=== PATIENT | male | born 1945 | race African-American/Black ===

== ENCOUNTER 2019-09-18 17:38 | Inpatient (IN) ==
[2019-09-18] MEDS ORDERED: NS 1,000 ML ONE (17:42)
[2019-09-18 18:22] LABS: BASO# 0.05 X1000 (0.0-0.2); BASO% 0.6 % (0.0-0.8); EOS# 0.41 X1000 (0.0-0.7); EOS% 4.9 % (0.0-10.0); HEMATOCRIT 33.6 % (42.0-52.0); HEMOGLOBIN 11.2 g/dL (14.0-18.0); IMM GRAN# 0.01 X1000 (0.0-0.04); IMM GRAN% 0.1 % (0.0-0.5); LYMPH# 3.12 X1000 (1.2-3.4); LYMPH% 37.1 % (20.5-51.1); MCH 32.3 PG (27-31); MCHC 33.3 g/dL (33-37); MCV 96.8 FL (81-99); MONO# 0.86 X1000 (0.11-0.59); MONO% 10.2 % (1.7-9.3); MPV 9.6 FL (7.4-10.4); NEUT# 3.95 X1000 (1.4-6.5); NEUT% 47.1 % (42.2-75.2); PLT 258 X1000 (130-400); RBC 3.47 XMIL (4.7-6.1); RDW 14.5 % (11.5-14.5)
[2019-09-18 18:31] LABS: ALBUMIN 4.7 g/dL (3.5-5.0); CREATININE 2.1 mg/dL (0.7-1.2); POTASSIUM 3.9 mmol/L (3.5-5.1); TOTAL BILIRUBIN 0.3 mg/dL (0.20-1.00)
--- NOTE | 2019-09-18 18:44 | EKG Report ---
Test Performed on : 09/18/2019 6:05:08 PM Test Reason : SYNCOPE Blood Pressure : / mmHG Vent. Rate : 059 BPM Atrial Rate : 059 BPM P-R Int : 248 ms QRS Dur : 094 ms QT Int : 430 ms P-R-T Axes : 000 049 053 degrees QTc Int : 425 ms Sinus bradycardia. with 1st degree AV block. Nonspecific T wave abnormality Abnormal ECG When compared with ECG of 18-SEP-2019 17:19, (Unconfirmed) premature atrial complexes. are no longer present DC interval has increased Nonspecific T wave abnormality now evident in Anterior leads Unconfirmed Result
[2019-09-18] MEDS ORDERED: NS 1,000 ML IV ONE ×3 (19:08→20:28)
--- NOTE | 2019-09-18 20:28 | PROVIDER DOCUMENTATION ---
This chart was entered by Rosey Magdaleno Scribe, acting as scribe for Trish Luke MD. HPI-Syncope/Dizziness - General Chief Complaint: Syncope Stated Complaint: syncope Time Seen by Provider: 09/18/19 19:08 Source: patient Allergies/Adverse Reactions: Patient Allergies Allergy/AdvReac Type Severity Reaction Status Date / Time Sulfa (Sulfonamide Allergy SWELLING Verified 09/18/19 17:57 Antibiotics) Home Medications: Home Medication List Medication Instructions Recorded Confirmed Last Taken Type Unobtainable [Home Meds 09/18/19 09/18/19 Unknown History Unobtainable] - History of Present Illness-Syncope/Dizzy Nature of Presenting Problem: 74 y/o male presents to the ED via EMS after syncopal episode. The patient states he [place] standing in line at the post office when he had some pain in his shoulders and neck and he thinks he himself to sit down due to being sitting when he regained consciousness. He states he had a similar episode last week when he felt hot but did not pass out and also had a similar episode previously when he was admitted to [facility] and told to have low iron at that time. He denies recent medication changes and also denies chest pain and dizziness. He does give a history of pulmonary fibrosis. Onset/Duration: reports: just prior to arrival Timing: reports: resolved prior to arrival Context: reports: lost consciousness Loss of Consciousness: unsure Recently Seen Here or By Another Healthcare Provider: No Review of Systems - Adult - REVIEW OF SYSTEMS - ADULT Constitutional: denies: chills, fever, weight gain Eyes: reports: no symptoms reported Ears, Nose, Mouth & Throat: reports: no symptoms reported Cardiovascular: reports: syncope. denies: chest pain, palpitations Respiratory: reports: no symptoms reported Gastrointestinal: reports: no symptoms reported Genitourinary: reports: no symptoms reported Musculoskeletal: reports: no symptoms reported Integumentary: reports: no symptoms reported Neurological: reports: syncope. denies: dizziness/vertigo, headache/migraines Psychiatric: reports: no symptoms reported Endocrine: reports: no symptoms reported Hematologic/Lymphatic: reports: no symptoms reported Allergic/Immunologic: reports: no symptoms reported All Other Systems: Reviewed and Negative Past History - Adult - PAST MEDICAL HISTORY-ADULT Review of Records: reports: Old Records Reviewed, Nursing Assessment Review, Medications Reviewed Physical Exam-General - PHYSICAL EXAM-ADULT Initial Vital Signs Reviewed: Yes - CONSTITUTIONAL General Appearance: alert, no apparent distress - HEAD, EARS, NOSE, MOUTH & THROAT HENMT: normocephalic/atraumatic, moist mucous membranes - NECK Neck: full range of motion, supple - RESPIRATORY Respiratory: normal breath sounds, crackles (left lower base with history of pulmonary fibrosis) - CARDIOVASCULAR Cardiovascular: regular rate, rhythm, no gallop, no murmur - SKIN Integumentary: normal color, warm/dry. negative: diaphoresis - NEUROLOGIC Neurologic: grossly normal - PSYCHIATRIC Psych/Mental Status: normal mood/affect, normal thought content, normal thought process, oriented x 3 Progress - PLAN OF CARE/RESULTS Progress/Plan/Lab Results: Vital Signs - 8 hr 09/18/19 17:40 09/18/19 18:10 09/18/19 20:21 Temperature 98.6 F Pulse Rate 62 60 Pulse Rate [Sitting] 65 Pulse Rate [Standing] 89 Pulse Rate [Supine] 63 Respiratory Rate 22 18 Blood Pressure 97/52 116/65 Blood Pressure [Sitting] 108/63 Blood Pressure [Standing] 113/57 Blood Pressure [Supine] 134/62 O2 Sat by Pulse Oximetry 97 99 09/18/19 21:00 09/18/19 22:00 Temperature Pulse Rate 59 L 60 Pulse Rate [Sitting] Pulse Rate [Standing] Pulse Rate [Supine] Respiratory Rate 16 16 Blood Pressure 112/68 139/70 Blood Pressure [Sitting] Blood Pressure [Standing] Blood Pressure [Supine] O2 Sat by Pulse Oximetry 99 96 Laboratory Results - last 24 hr 09/18/19 09/18/19 09/18/19 17:50 17:50 17:50 WBC 8.40 RBC 3.47 L Hgb 11.2 L Hct 33.6 L MCV 96.8 MCH 32.3 H MCHC 33.3 RDW Std Deviation 14.5 Plt Count 258 MPV 9.6 Immature Gran % (Auto) 0.1 Neut % (Auto) 47.1 Lymph % (Auto) 37.1 [place] % (Auto) 10.2 H Eos % (Auto) 4.9 Baso % (Auto) 0.6 Immature Gran # (Auto) 0.01 Neut # (Auto) 3.95 Lymph # (Auto) 3.12 [place] # (Auto) 0.86 H Eos # (Auto) 0.41 Baso # (Auto) 0.05 Sodium 143 Potassium 3.9 Chloride 105 Carbon Dioxide 24 L Anion Gap 15 BUN 11 Creatinine 2.1 H Estimated GFR/1.73 m2 31 BUN/Creatinine Ratio 5 Glucose 96 Calculated Osmolality 284 Calcium 9.0 Total Bilirubin 0.30 AST 30 ALT 12 Alkaline Phosphatase 65 Troponin T High Sens Total Protein 8.0 Albumin 4.7 Globulin 3.0 Albumin/Globulin Ratio 1.0 Plasma Lactate 1.3 09/18/19 09/18/19 21:58 21:58 WBC RBC Hgb Hct MCV MCH MCHC RDW Std Deviation Plt Count MPV Immature Gran % (Auto) Neut % (Auto) Lymph % (Auto) [place] % (Auto) Eos % (Auto) Baso % (Auto) Immature Gran # (Auto) Neut # (Auto) Lymph # (Auto) [place] # (Auto) Eos # (Auto) Baso # (Auto) Sodium Potassium Chloride Carbon Dioxide Anion Gap BUN Creatinine Estimated GFR/1.73 m2 BUN/Creatinine Ratio Glucose Calculated Osmolality Calcium Total Bilirubin AST ALT Alkaline Phosphatase Troponin T High Sens 16 Total Protein Albumin Globulin Albumin/Globulin Ratio Plasma Lactate 1.6 Orders Category Date Time Status Admit - [facility] Routine AdmDCTranf 09/18/19 23:55 Active ED: Orthostatic Vital Signs (ER use this as directed Care 09/18/19 20:01 Active Neurological Check Q4H Care 09/18/19 23:55 Active Vital Signs Order ORDERED Care 09/18/19 23:55 Active Z-Document. for Tele Applied ORDERED Care 09/18/19 23:55 Active Heart Healthy Diet Diet 09/18/19 23:[address] HEAD W/O CONTRAST [CT] Stat Exams 09/18/19 19:59 Completed BASIC METABOLIC PANEL [CHEM] Stat Lab 09/19/19 06:00 Ordered CBC WITH ELECTRONIC DIFF [HEME] Stat Lab 09/18/19 17:50 Completed CBC WITH ELECTRONIC DIFF [HEME] Stat Lab 09/19/19 06:00 Uncollected COMPREHENSIVE METABOLIC PANEL [CHEM] Stat Lab 09/18/19 17:50 Completed LACTATE, PLASMA [CHEM] Lab 09/18/19 21:58 Completed LACTATE, PLASMA [CHEM] Lab 09/19/19 00:51 Received LACTATE, PLASMA [CHEM] Q3H Lab 09/18/19 17:50 Completed TROPONIN T HIGH SENSITIVITY Stat Lab 09/18/19 21:58 Completed 0.9% Sodium Chloride Inj [Ns] 1,000 ml Med 09/18/19 17:42 Discontinued .ROUTE As directed 0.9% Sodium Chloride Inj [Ns] 1,000 ml Med 09/18/19 20:28 Discontinued IV 125 mls/hr 0.9% Sodium Chloride Inj [Ns] 1,000 ml Med 09/18/19 19:08 Discontinued IV 999 mls/hr 0.9% Sodium Chloride Inj [Ns] 1,000 ml Med 09/18/19 19:59 Discontinued IV 999 mls/hr Telemetry [OM.EQ] Routine Oth 09/18/19 23:55 Active Carotid Ultrasound Stat Ther 09/19/19 06:00 Ordered EKG [EKG] Stat Ther 09/18/19 18:07 Draft EKG [EKG] Stat Ther 09/18/19 21:52 Ordered Echo Spec/Color Doppler Stat Ther 09/19/19 06:00 Ordered Transfer/Admit Order [TRANSFER] Routine Transfer 09/18/19 22:[address] Head negative for anything acute, just showing chronic changes. Cr elevated to 2.1 which is greater than he was in 03/2019 at 1.2. HR also increased on standing during orthostatics. Likely dehydration but given age and symptoms will admit. Spoke to Dr Degroot, international relations teacher for hosp who accepted patient for admission. Stable for floor. Orders placed per his recommendations. Result Diagrams: 09/18/19 17:50 09/18/19 17:50 - EKG 1 Time of EKG reading by physician:: 19:08 EKG Read and Signed by:: Trish Luke EKG Interpretation (*Must complete 3 of following elements*): Abnormal Rate: 59 Rhythm: NSR QRS: normal NC Interval: normal ST Wave: non-specific ST changes - CT/MRI 1 CT Study: Head (EXAM: CT HEAD W/O CONTRAST INDICATION: syncope TECHNIQUE: This exam was performed using automated exposure control, adjustment of mA or kV according to patient size, and/or use of iterative reconstruction technique. COMPARISON: None. FINDINGS: There is minimal patchy low attenuation in the periventricular white matter suggesting mild microangiopathy. There are also are likely a couple of tiny chronic lacunar infarcts involving the periventricular white matter bilaterally. There is no definite acute infarct given the limited sensitivity of CT versus MRI. There is no discrete intracranial mass, mass effect, or intracranial hemorrhage. The surrounding soft tissues and bony structures are essentially unremarkable. IMPRESSION: Mild chronic appearing changes as described. No definite acute intracranial pathology by CT. Electronically signed by Thomas Messina 09/18/2019 9:39 PM) Impression: See EMR Report - CONSULTS/PCP/HOSPITALIST Notification #1 *Consult/PCP/Hospitalist*: Hospitalist, Dr. Degroot Time Discussed: 22:00 Reason/Comments: syncope, creatinine elevated, Consult Disposition: Admit Departure - Departure Date of Disposition Decision: 09/18/19 Time of Disposition Decision: 22:07 DIAGNOSIS: Syncope, PRICE (acute kidney injury), Orthostatic hypotension Disposition: ADMITTED INPATIENT 09 Certified Medical Emergency: Urgent Condition: Stable - Critical Care Note This patient required my direct & personal management of CC.: No Attestation - Physician/ LEONOR Attestation Patient care was provided by Advanced Practice Provider:: No The physician spent face to face time with patient:: Yes Advanced Practice Provider documentation review:: Supervising physician onsite and consulted in the evaluation and care of this patient. The physician did have a face to face encounter with the patient. This chart was documented by the indicated scribe, (Rosey Magdaleno, [place]) and accurately reflects the services I performed and decisions made by me, Trish Luke MD, as attested by the provider's signature.
--- NOTE | 2019-09-18 21:41 | Diag Imaging Result Doc PS360 ---
EXAM: CT HEAD W/O CONTRAST INDICATION: syncope TECHNIQUE: This exam was performed using automated exposure control, adjustment of mA or kV according to patient size, and/or use of iterative reconstruction technique. COMPARISON: None. FINDINGS: There is minimal patchy low attenuation in the periventricular white matter suggesting mild microangiopathy. There are also are likely a couple of tiny chronic lacunar infarcts involving the periventricular white matter bilaterally. There is no definite acute infarct given the limited sensitivity of CT versus MRI. There is no discrete intracranial mass, mass effect, or intracranial hemorrhage. The surrounding soft tissues and bony structures are essentially unremarkable. IMPRESSION: Mild chronic appearing changes as described. No definite acute intracranial pathology by CT. Electronically signed by Thomas Messina 09/18/2019 9:39 PM
[2019-09-19] MEDS ORDERED: PNEUMOVAX 23 IM ONE (01:35)
--- NOTE | 2019-09-19 03:55 | EKG Report ---
Test Performed on : 09/19/2019 03:39:14 AM Test Reason : syncope Blood Pressure : / mmHG Vent. Rate : 059 BPM Atrial Rate : 059 BPM P-R Int : 264 ms QRS Dur : 094 ms QT Int : 426 ms P-R-T Axes : 028 020 027 degrees QTc Int : 421 ms Sinus bradycardia. with 1st degree AV block. Otherwise normal ECG When compared with ECG of 18-SEP-2019 18:05, (Unconfirmed) No significant change was found Unconfirmed Result
[2019-09-19 06:05] LABS: CALCIUM 8.1 mg/dL (8.8-10.2); CREATININE 1.5 mg/dL (0.7-1.2); POTASSIUM 3.6 mmol/L (3.5-5.1)
[2019-09-19 06:08] LABS: BASO# 0.04 X1000 (0.0-0.2); BASO% 0.6 % (0.0-0.8); EOS# 0.33 X1000 (0.0-0.7); EOS% 4.8 % (0.0-10.0); HEMATOCRIT 28.9 % (42.0-52.0); HEMOGLOBIN 9.4 g/dL (14.0-18.0); IMM GRAN# 0.01 X1000 (0.0-0.04); IMM GRAN% 0.1 % (0.0-0.5); LYMPH# 2.59 X1000 (1.2-3.4); LYMPH% 37.4 % (20.5-51.1); MCH 31.9 PG (27-31); MCHC 32.5 g/dL (33-37); MONO# 0.64 X1000 (0.11-0.59); MONO% 9.2 % (1.7-9.3); MPV 9.2 FL (7.4-10.4); NEUT# 3.31 X1000 (1.4-6.5); NEUT% 47.9 % (42.2-75.2); PLT 206 X1000 (130-400); RBC 2.95 XMIL (4.7-6.1); RDW 14.5 % (11.5-14.5); WBC 6.92 X1000 (4.8-10.8)
[2019-09-19] MEDS ORDERED: NS 1,000 ML IV SCH (10:15)
--- NOTE | 2019-09-19 10:43 | EKG Report ---
Test Performed on : 09/19/2019 08:35:20 AM Test Reason : syncope Blood Pressure : / mmHG Vent. Rate : 059 BPM Atrial Rate : 059 BPM P-R Int : 276 ms QRS Dur : 094 ms QT Int : 426 ms P-R-T Axes : 026 017 015 degrees QTc Int : 421 ms Sinus bradycardia. with 1st degree AV block. Otherwise normal ECG When compared with ECG of 19-SEP-2019 03:39, (Unconfirmed) No significant change was found Unconfirmed Result
--- NOTE | 2019-09-19 12:46 | Vascular Study Report ---
EXAM: Carotid Ultrasound INDICATION: syncope TECHNIQUE: COMPARISON: None. FINDINGS: Right: There is mild intimal thickening at the distal CCA and carotid bulb and mild soft plaque at the carotid bulb. The peak systolic velocity measures 117, 81, 109, 92, 81, 74, and 76 cm/s at the right subclavian artery, CCA, bifurcation, proximal ICA, mid ICA, distal ICA, and ECA, respectively. There is antegrade flow in the vertebral artery. The carotid ratio is 1.1. The estimated stenosis is under 39%. Left: There is mild intimal thickening and soft plaque at the distal CCA and carotid bulb. The peak systolic velocity measures 89, 88, 96, 92, 96, 94, and 67 cm/s at the left subclavian artery, CCA, bifurcation, proximal ICA, mid ICA, distal ICA, and ECA, respectively. There is antegrade flow in the vertebral artery. The carotid ratio is 1.0. The estimated stenosis is under 39%. IMPRESSION: Mild atherosclerotic disease as described. No evidence of hemodynamically significant stenosis. Electronically signed by Thomas Messina 09/19/2019 12:44 PM
--- NOTE | 2019-09-19 13:38 | HISTORY AND PHYSICAL ---
CHIEF COMPLAINT: Syncope. HISTORY OF PRESENT ILLNESS: Patient is a very pleasant 74-year-old male who presented to the hospital [place] States he was standing in line, felt some shoulder pain and then sat down. Denies any injury. Notes he has had a similar episode in the past and was told that his iron level was low. He does not remember if there was any further workup at that point. Denies any current chest pains, palpitations. Denies any fevers or chills. ALLERGIES: Sulfa. MEDICATIONS: Do not have an accurate medication list currently. REVIEW OF SYSTEMS: Patient denies any chest pain, palpitations. Denies fevers, chills. Denies headaches, blurred vision. Denies frequent falling. Denies any cough, congestion, shortness of breath, dysuria, urinary frequency, or urgency. FAMILY HISTORY: Noncontributory. PAST MEDICAL HISTORY: The patient denies any chronic active medical problems. SOCIAL HISTORY: Patient lives at home. Denies smoking or illicit substances. PHYSICAL EXAMINATION: VITAL SIGNS: Temperature 98 degrees, pulse 62, blood pressure was 97/52, currently 130s/60s. GENERAL: Patient is awake, alert, pleasant. He is in no respiratory distress. He is lying in the bed. HEENT: Normocephalic. NECK: Supple. CARDIOVASCULAR: Regular rate. CHEST: Clear. Nonlabored. No crackles. No wheezing. ABDOMEN: Soft, nondistended. EXTREMITIES: Moves all extremities. ASSESSMENT: 1. Acute renal failure. Creatinine 2.1. 2. Syncope. 3. Hypotension due to hypovolemia. PLAN: We are going to admit the patient to the hospital, place him on telemetry, check echo, carotid, follow his kidney function and will follow. cc: Patrick Wong MD
[2019-09-20 05:32] LABS: HEMATOCRIT 27.7 % (42.0-52.0); HEMOGLOBIN 9.2 g/dL (14.0-18.0); MCH 32.3 PG (27-31); MCHC 33.2 g/dL (33-37); MCV 97.2 FL (81-99); MPV 9.2 FL (7.4-10.4); RBC 2.85 XMIL (4.7-6.1); RDW 13.9 % (11.5-14.5); WBC 6.88 X1000 (4.8-10.8)
[2019-09-20 05:58] LABS: AGAP 12; ALBUMIN 3.5 g/dL (3.5-5.0); ALKALINE PHOSPHATASE 49 U/L (32-122); BUN 9 mg/dL (8-22); CALCIUM 8.3 mg/dL (8.8-10.2); CHLORIDE 106 mmol/L (98-107); COSMO 279; CREATININE 1.1 mg/dL (0.7-1.2); ESTIMATED GFR > 60; GLUCOSE 89 mg/dL (70-104); GOT 21 U/L (10-34); GPT 9 U/L (10-44); MAGNESIUM 1.6 mg/dL (1.5-2.7); POTASSIUM 3.7 mmol/L (3.5-5.1); SODIUM 141 mmol/L (136-145); TCO2 23 mmol/L (25-35); TOTAL PROTEIN 6.3 g/dL (6.3-8.3)
[2019-09-20 07:37] VITALS: BP 166/81
[2019-09-20] MEDS ORDERED: PLENDIL PO SCH ×2 (10:15→10:30)
[2019-09-20] MEDS ORDERED: PEPCID PO SCH (10:15)
[2019-09-20] MEDS ORDERED: VITAMIN B-12 PO SCH (10:15)
[2019-09-20] MEDS ORDERED: NEURONTIN PO SCH (10:15)
[2019-09-20] MEDS ORDERED: COZAAR PO SCH (10:15)
[2019-09-20] MEDS ORDERED: VITAMIN D PO SCH (10:15)
[2019-09-20] MEDS ORDERED: PATIENT'S OWN MED PO SCH (10:15)
[2019-09-20] MEDS ORDERED: FERROUS SULFATE PO SCH (10:30)
[2019-09-20] MEDS ORDERED: INDERAL PO SCH (10:30)
--- NOTE | 2019-09-20 14:30 | DISCHARGE SUMMARY ---
ADMISSION DATE: 09/18/2019 DISCHARGE DATE: 09/20/2019 DISCHARGE DIAGNOSES: 1. Syncope, most likely vasovagal. 2. Acute renal failure, resolved. 3. Hypotension due to dehydration. 4. Wound. PROCEDURES: 1. Head CT done on admission showed mild chronic-appearing changes. But no evidence of acute pathology. 2. Carotid Doppler ultrasound showed mild arteriosclerotic disease, but no evidence of hemodynamically significant stenosis. HOSPITAL COURSE: In brief, this is a 74-year-old, male, who presented to the emergency department [place] He was standing in line, felt some shoulder pain, and then sat down. He was brought to the emergency department. He was found to have acute renal failure. He was a little bit confused. He was provided IV fluids, and we monitored kidney function, and today, renal function is back to normal. The patient is completely awake and alert. The patient reports feeling okay. The carotid ultrasound result is as above. The patient is going to be discharged in stable condition. DISCHARGE PHYSICAL EXAMINATION: Vital Signs: Temperature 98.1 degrees, heart rate 66, respiratory rate 18, blood pressure 166/81, O2 saturation 100% on room air. General: This is a 74-year-old, male, lying in bed in no acute distress. Cardiovascular: S1, S2 heard. No murmurs, gallops, or rubs. Regular rate and rhythm. Respiratory: Clear bilaterally to auscultation. No work of breathing or using accessory muscles. Abdomen: Soft, nontender to palpation. Bowel sounds present. No organomegaly. Extremities: No clubbing, cyanosis, or edema. Peripheral pulses present in both legs. Neurological: The patient is alert and oriented x3. Moves all 4 extremities. DISCHARGE DISPOSITION: Home to self-care. FOLLOWUP: Follow up with his primary care physician in a week if needed. DISCHARGE MEDICATIONS: We are not going to make any changes to his current list of medications. cc: Thad Rincon MD
--- NOTE | 2019-09-20 14:37 | ECHO REPORT ---
ORDER DATE: 09/19/2019 INTERPRETING PHYSICIAN: Dr. Armando Guadarrama. MEASUREMENTS: 1. Interventricular septum 1.0. 2. Left ventricular posterior wall 0.9. 3. Diastolic diameter 4.5. 4. Left atrium 3.7. 5. Aorta 3.8. SUMMARY OF THE 2-DIMENSIONAL IMAGIN. Mitral valve was normal. 2. Aortic valve leaflets were trileaflet, mildly sclerosed, opening normally. 3. Pulmonic valve was normal. There is trace pulmonary regurgitation. 4. Tricuspid valve was normal. 5. There is left atrial enlargement. 6. There is mild tricuspid regurgitation. Peak velocity across the tricuspid valve was 3.5 m/sec. 7. Pulmonary artery systolic pressure of 60 mmHg. 8. There is mild mitral regurgitation. 9. Peak velocity across the aortic valve less than 2 m/sec. There is no aortic stenosis or regurgitation. 10. Normal left ventricular cavity size. Estimated ejection fraction of 65% to 70%. 11. There is no pericardial effusion or obvious intracardiac mass or thrombus seen. cc: Armando Guadarrama MD
[2019-09-20] MEDS ORDERED: PRAVACHOL PO SCH (21:00)
[2019-09-20] MEDS ORDERED: COLACE LIQUID PO SCH (21:00)
[2019-09-21] MEDS ORDERED: KLOR-CON PO SCH (09:00)
== END 2019-09-20 13:10 | disposition home or self-care (01) | DRG 684 ==
LOC: P.ED 17:38 → SUATTDRO 23:44 → P.MEDSURG 23:44
PROVIDERS: ATTEND Internal Medicine